=== PATIENT | female | born 1960 | race Caucasian/White ===

== ENCOUNTER → 2016-11-30 | Outpatient (CLI) | payer BC | END | disposition home or self-care (01) | LOC: C.RDSM 11:45 | PROVIDERS: ATTEND Physical Medicine & Rehabilitation Sports Medicine | DX: M25.562 Pain in left knee (principal) ==

== ENCOUNTER → 2016-12-15 | Outpatient (CLI) | payer BC | END | disposition home or self-care (01) | LOC: C.MAMM 15:30 | PROVIDERS: ATTEND Physical Medicine & Rehabilitation Sports Medicine | DX: M25.562 Pain in left knee (principal); Z78.0 Asymptomatic menopausal state ==

== ENCOUNTER → 2017-02-03 | Outpatient (CLI) | payer BC ==
[2017-02-03 16:47] LABS: URINE APPEARANCE CLEAR (CLEAR); URINE BILIRUBIN NEG (NEG); URINE COLOR YELLOW; URINE EPITHELIAL CELL AUTO 0-5 /lpf (0-5); URINE NITRITE NEG (NEG); URINE PH 7.5 (4.5-7.5); URINE SPECIFIC GRAVITY 1.006 (1.000-1.030); UROBILINOGEN NEG (NEG)
[2017-02-03 16:49] LABS: MANUAL MICROSCOPIC REQUIRED? NO; REVIEW REQ? NO
== END | disposition home or self-care (01) ==
LOC: C.LABBFT 14:18
PROVIDERS: ATTEND Physician Assistant Medical
DX: R39.9 Unspecified symptoms and signs involving the genitourinary system (principal)

== ENCOUNTER → 2017-07-24 | Outpatient (CLI) | payer BC | END | disposition home or self-care (01) | LOC: C.PAPS 11:19 | PROVIDERS: ATTEND Obstetrics & Gynecology | DX: Z01.419 Encounter for gynecological examination (general) (routine) without abnormal findings (principal) ==

== ENCOUNTER → 2017-07-25 | Outpatient (CLI) | payer BC ==
--- NOTE | 2017-07-25 08:42 | DIAGNOSTIC IMAGING REPORT ---
L HAND MIN 3 VIEWS CLINICAL HISTORY: LEFT HAND PAIN pain COMPARISON: None. DISCUSSION: Mild degenerative changes of the articular services throughout. No significant periventricular osteopenia. No significant marginal erosions. No evidence for fracture or dislocation. No acute bony abnormality. There is no evidence for soft tissue swelling. IMPRESSION: Minimal degenerative change. No acute process. The above report was generated using voice recognition software. It may contain grammatical, syntax or spelling errors. Electronically signed by: Pradip Villegas M.D. 07/25/2017 8:40 AM Dictated Date/Time: 07/25/2017 8:40 AM
== END | disposition home or self-care (01) ==
LOC: C.RDSM 11:32
PROVIDERS: ATTEND Physician Assistant
DX: M79.642 Pain in left hand (principal)

== ENCOUNTER → 2017-08-03 | Outpatient (CLI) | payer BC ==
--- NOTE | 2017-08-03 08:54 | DIAGNOSTIC IMAGING REPORT ---
L LOWER EXT JOINT WITHOUT CLINICAL HISTORY: 57 years-old Female presenting with KNEE PAIN. TECHNIQUE: Multisequence, multiplanar MR imaging of the left knee was performed without the use of intravenous contrast. IV contrast: None. COMPARISON: 10/22/2015. FINDINGS: Localizer images: Unremarkable. Bony edema noted in the lateral patellar facet and lateral femoral trochlea as well as in the intercondylar region of the femur and tibial plateau. Significant interval worsening of degenerative change of the anterior cruciate ligament with significant cystic change proximally. Less pronounced cystic change also noted in the tibial plateau subjacent to the insertion of the ACL. Posterior cruciate ligament remains intact. The degree of chondromalacia patella is overall unchanged from prior with full-thickness chondral defects along both the lateral patellar facet and lateral trochlea with subchondral edema and cystic change. The median prominence of the patella is also affected, although the medial facet demonstrates only increased signal intensity within the cartilage, suggesting grade 1 injury. Osteophytosis also noted at the patellofemoral articulation. Medial and lateral patellar retinacula intact. Unchanged findings of truncation and possible complex tear of the posterior horn-root junction of the medial meniscus, which may in part be postsurgical. Increased signal intensity within the substance of the lateral meniscus most pronounced along the anterior horn has slightly increased from prior. No focal tear of the lateral meniscus. Central osteophyte formation in the mid weightbearing portion of the medial femoral condyle as on prior exam with complete loss of overlying cartilage (grade 4 cartilage injury). Increased signal intensity within the opposing cartilage of the mid weightbearing portion of the tibial plateau compatible with grade 1 cartilage injury. Predominantly peripheral cartilage thinning in the lateral compartment with loss of greater than 50% of the thickness. Medial collateral ligament intact. Lateral collateral ligament complex including the biceps femoris tendon, fibular collateral ligament, popliteus tendon, and iliotibial band intact. Quadriceps and patellar tendons intact. Trace knee joint effusion. No popliteal cyst. Normal muscle bulk and signal intensity. IMPRESSION: 1. 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 2. No significant change in severe chondromalacia patella with full-thickness cartilage loss in the lateral facet and bony edema. 3. 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 4. Postsurgical and/or posttraumatic changes of the posterior horn-root junction of the medial meniscus. No change from the prior exam. A complex tear in this region cannot be excluded. 5. Degenerative changes of the lateral meniscus. Electronically signed by: Nilesh Venegas M.D. 08/03/2017 8:53 AM Dictated Date/Time: 08/03/2017 8:36 AM
--- NOTE | 2017-08-03 09:03 | DIAGNOSTIC IMAGING REPORT ---
MRI OF THE LEFT CALF WITHOUT CONTRAST CLINICAL HISTORY: Persistent left posterolateral upper calf pain. COMPARISON STUDY: MRI of the left knee August 22, 2015. TECHNIQUE: Utilizing 1.5 Jaki magnet and dedicated coil, multiplanar, multi echo imaging of the left calf was performed without IV contrast. The MRI of the left knee will be reported separately. FINDINGS: No marrow edema or marrow replacement is identified within the left tibia or fibula. No mass or fluid collection is identified within the left lower leg. A marker was placed on the skin at site of maximal pain. This overlies the posterolateral aspect of the left upper calf at the level of the fibular head. There is mild atrophy of the lateral head of the gastrocnemius. No additional muscular abnormalities are identified within the left lower leg. The MRI of the left knee while be reported separately. IMPRESSION: 1. No acute abnormality within the left lower leg by MRI. 2. Mild muscular atrophy of the lateral head of the gastrocnemius. 3. No marrow edema or marrow replacement within the left tibia or fibula. No left lower leg mass or fluid collection. Electronically signed by: Jero Hutchinson M.D. 08/03/2017 9:01 AM Dictated Date/Time: 08/03/2017 8:43 AM
== END | disposition home or self-care (01) ==
LOC: C.MRI 06:44
PROVIDERS: ATTEND Physical Medicine & Rehabilitation Sports Medicine
DX: M25.562 Pain in left knee (principal); S83.512D Sprain of anterior cruciate ligament of left knee, subsequent encounter; M17.2 Bilateral post-traumatic osteoarthritis of knee; M25.762 Osteophyte, left knee; Z98.890 Other specified postprocedural states; X58.XXXD Exposure to other specified factors, subsequent encounter